=== PATIENT | male | born 1945 | race Caucasian/White ===

== ENCOUNTER 2018-10-27 11:44 | Inpatient (IN) ==
[2018-10-27] MEDS ORDERED: ASPIRIN PO ONE (11:59)
[2018-10-27] MEDS ORDERED: ASPIRIN PR ONE (11:59)
--- NOTE | 2018-10-27 12:16 | EKG Report ---
Test Performed on : 10/27/2018 11:48:01 AM Test Reason : CP Blood Pressure : / mmHG Vent. Rate : 054 BPM Atrial Rate : 054 BPM P-R Int : 156 ms QRS Dur : 096 ms QT Int : 418 ms P-R-T Axes : 042 -23 059 degrees QTc Int : 396 ms Sinus bradycardia. Incomplete right bundle branch block Borderline ECG When compared with ECG of 04-JAN-2017 17:15, Incomplete right bundle branch block is now present Unconfirmed Result
[2018-10-27 12:19] LABS: BASO# 0.01 X1000 (0.0-0.2); BASO% 0.3 % (0.0-0.8); EOS# 0.01 X1000 (0.0-0.7); EOS% 0.3 % (0.0-10.0); HEMATOCRIT 40.5 % (42.0-52.0); HEMOGLOBIN 14.6 g/dL (14.0-18.0); LYMPH# 0.69 X1000 (1.2-3.4); MCH 32.2 PG (27-31); MCV 89.4 FL (81-99); MONO# 0.21 X1000 (0.11-0.59); MONO% 7.3 % (1.7-9.3); NEUT# 1.95 X1000 (1.4-6.5); NEUT% 68.1 % (42.2-75.2); PLT 103 X1000 (130-400); RBC 4.53 XMIL (4.7-6.1); RDW 12.6 % (11.5-14.5); WBC 2.87 X1000 (4.8-10.8)
[2018-10-27] MEDS ORDERED: NITROGLYCERIN TOP ONE (12:21)
--- NOTE | 2018-10-27 12:29 | Diag Imaging Result Doc PS360 ---
CHEST-2 VIEWS - 10/27/2018 INDICATION: CP COMPARISON: 01/04/2017 FINDINGS: The lungs are normally expanded and clear. Heart size and mediastinal contours are normal. No pneumothorax or pleural effusion. IMPRESSION: Negative exam. Electronically signed by Reynold Fritz 10/27/2018 12:26 PM
[2018-10-27 12:30] LABS: INR 0.84; PROTIME 12.2 Seconds (11.0-16.0); PTT 27.7 Seconds (22.3-41.8)
--- NOTE | 2018-10-27 12:32 | PROVIDER DOCUMENTATION ---
HPI-Chest Pain - General Chief Complaint: Chest Pain Stated Complaint: CHEST TIGHTNESS,SOB,NAUSEA Time Seen by Provider: 10/27/18 11:54 Source: patient Allergies/Adverse Reactions: Patient Allergies Allergy/AdvReac Type Severity Reaction Status Date / Time No Known Allergies Allergy Verified 04/30/16 21:50 Home Medications: Home Medication List Medication Instructions Recorded Confirmed Last Taken Type Aspirin 81 mg PO DAILY 01/04/16 04/15/18 04/14/18 21:00 History Calcium Carbonate [Calcium] 600 mg PO DAILY 01/04/16 04/15/18 04/14/18 21:00 History Finasteride 5 mg PO DAILY 01/04/16 04/15/18 04/14/18 21:00 History Gabapentin [Neurontin] 800 mg PO BID 01/04/16 04/15/18 04/14/18 21:00 History Metoprolol [Lopressor] 25 mg PO DAILY 01/04/16 04/15/18 04/14/18 21:00 History Montelukast [Singulair] 10 mg PO DAILY 01/04/16 04/15/18 04/14/18 21:00 History Simvastatin 10 mg PO DAILY 01/04/16 04/15/18 04/14/18 21:00 History Tamsulosin [Flomax] 0.4 mg PO DAILY 01/04/16 04/15/18 04/14/18 21:00 History Carbidopa/Levodopa 1 each PO TID 04/14/18 04/15/18 04/14/18 21:00 History [Carbidopa-Levodopa 25-100 Tab] Cyanocobalamin (Vitamin B-12) 1,000 mcg PO DAILY 04/14/18 04/15/18 04/14/18 21:00 History [Vitamin B-12] Losartan [Cozaar] 25 mg PO DAILY 04/14/18 04/15/18 04/13/18 21:00 History Vit/Fe Fumarate/FA 1 each PO DAILY 04/14/18 04/15/18 04/14/18 21:00 History [ Tablet] Omeprazole [Prilosec] 40 mg PO DAILY #90 capsule. 04/15/18 Unknown Rx - History of Present Illness-CP Nature of Presenting Problem: Patient is a 73 yowm who complains of mid sternal chest pain described as "tightness" that is worse with activity x 3-4 weeks. States was worse yesterday while mowing grass. Pain is associated with SOB and nausea. He denies any other symptoms. Hx of CAD. He is non-toxic in appearance. Review of Systems - Adult - REVIEW OF SYSTEMS - ADULT Constitutional: reports: no symptoms reported Eyes: reports: no symptoms reported Ears, Nose, Mouth & Throat: reports: no symptoms reported Cardiovascular: reports: see HPI, chest pain. denies: edema, heart murmur, irregular heart rate, orthopnea, palpitations, poor circulation, PND, syncope Respiratory: reports: see HPI, shortness of breath Gastrointestinal: reports: see HPI, nausea. denies: abdominal pain, diarrhea, vomiting Genitourinary: reports: no symptoms reported Musculoskeletal: reports: no symptoms reported Integumentary: reports: no symptoms reported Neurological: reports: no symptoms reported Psychiatric: reports: no symptoms reported Endocrine: reports: no symptoms reported Hematologic/Lymphatic: reports: no symptoms reported Allergic/Immunologic: reports: no symptoms reported All Other Systems: Reviewed and Negative Past History - Adult - PAST MEDICAL HISTORY-ADULT Review of Records: reports: Nursing Assessment Review, Medications Reviewed, Social history reviewed & non-contributory. Major Childhood Illnesses: reports: denies history Cardiovascular: reports: CAD, HTN Respiratory: reports: denies history Gastrointestinal: reports: denies history Genitourinary: reports: denies history Musculoskeletal: reports: denies history Neurological: reports: Parkinson's Psychiatric: reports: denies history Endocrine/Immune: reports: denies history, Diabetes Other Conditions: reports: denies history - IMMUNIZATION STATUS Childhood Immunizations: See Nurse Assessment Flu Vaccine: See Nurse Assessment - FAMILY HISTORY Family History: reviewed, not pertinent - SOCIAL HISTORY Smoking: non-smoker Physical Exam-General - PHYSICAL EXAM-ADULT Initial Vital Signs Reviewed: Yes - CONSTITUTIONAL General Appearance: alert, no apparent distress. negative: lethargic, slow to respond - EYES Eyes: PERRL/EOMI, pink conjunctivae - HEAD, EARS, NOSE, MOUTH & THROAT HENMT: normocephalic/atraumatic, moist mucous membranes - NECK Neck: non-tender, full range of motion, supple, normal inspection - RESPIRATORY Respiratory: chest non-tender, lungs clear, normal breath sounds, no pleuratic chest pain, no respiratory distress, no accessory muscle use - CARDIOVASCULAR Cardiovascular: normal peripheral pulses, regular rate, rhythm, no edema, no gallop, no JVD, no murmur - GASTROINTESTINAL (ABDOMEN) Abdominal Exam: normal bowel sounds, non tender, soft, no organomegaly, no pulsatile mass - MUSCULOSKELETAL Back Exam: normal inspection Extremity: normal range of motion, non-tender, normal gait, normal inspection - SKIN Integumentary: normal color, warm/dry. negative: cyanosis, diaphoresis, jaundice, mottled, pallor - NEUROLOGIC Neurologic: grossly normal, no motor/sensory deficits, other (resting tremor- chronic due to Parkinson's disease) - PSYCHIATRIC Psych/Mental Status: normal mood/affect, normal thought content, normal thought process, oriented x 3 - HEART Score HEART Score: History: Highly Suspicious HEART Score: ECG: Normal HEART Score: Age: > or = 65 Years HEART Score: Risk Factors for Atherosclerotic Disease: > or = 3 Risk Factors or History of Atherosclerotic Disease HEART Score: Troponin: < or = Normal Limit Total HEART Score:: 6 Progress - PLAN OF CARE/RESULTS Progress/Plan/Lab Results: Vital Signs - 8 hr 10/27/18 11:50 Temperature 98.2 F Pulse Rate 54 L Respiratory Rate 18 Blood Pressure 178/77 O2 Sat by Pulse Oximetry 99 Laboratory Results - last 24 hr 10/27/18 10/27/18 10/27/18 12:00 12:00 12:00 WBC 2.87 L RBC 4.53 L Hgb 14.6 Hct 40.5 L MCV 89.4 MCH 32.2 H MCHC 36.0 RDW Std Deviation 12.6 Plt Count 103 L MPV 11.0 H Immature Gran % (Auto) 0.0 Neut % (Auto) 68.1 Lymph % (Auto) 24.0 [place] % (Auto) 7.3 Eos % (Auto) 0.3 Baso % (Auto) 0.3 Immature Gran # (Auto) 0.00 Neut # (Auto) 1.95 Lymph # (Auto) 0.69 L [place] # (Auto) 0.21 Eos # (Auto) 0.01 Baso # (Auto) 0.01 PT INR PTT (Actin FS) Sodium 140 Potassium 4.1 Chloride 103 Carbon Dioxide 28 Anion Gap 9 BUN 13 Creatinine 0.9 Estimated GFR/1.73 m2 > 60 BUN/Creatinine Ratio 14 Glucose 98 Calculated Osmolality 279 Calcium 8.4 L Magnesium Total Bilirubin 0.69 AST 20 ALT 8 L Alkaline Phosphatase 72 Creatine Kinase 110 Troponin T Cxq-G-Pepgoqaocyg Pept 139 Total Protein 6.8 Albumin 4.3 Globulin 2.5 Albumin/Globulin Ratio 1.7 10/27/18 10/27/18 10/27/18 12:00 12:00 12:00 WBC RBC Hgb Hct MCV MCH MCHC RDW Std Deviation Plt Count MPV Immature Gran % (Auto) Neut % (Auto) Lymph % (Auto) [place] % (Auto) Eos % (Auto) Baso % (Auto) Immature Gran # (Auto) Neut # (Auto) Lymph # (Auto) [place] # (Auto) Eos # (Auto) Baso # (Auto) PT 12.2 INR 0.84 PTT (Actin FS) 27.7 Sodium Potassium Chloride Carbon Dioxide Anion Gap BUN Creatinine Estimated GFR/1.73 m2 BUN/Creatinine Ratio Glucose Calculated Osmolality Calcium Magnesium 2.1 Total Bilirubin AST ALT Alkaline Phosphatase Creatine Kinase Troponin T < 0.010 Lwd-V-Prmydyjfugk Pept Total Protein Albumin Globulin Albumin/Globulin Ratio Orders Category Date Time Status Cardiac Monitoring DIRECTED Care 10/27/18 11:59 Active Oxygen Therapy- ED Nursing DIRECTED Care 10/27/18 11:59 Active Saline Loc NOW Care 10/27/18 11:59 Active CHEST-2 VIEWS [RAD] Stat Exams 10/27/18 11:59 Completed CBC WITH ELECTRONIC DIFF [HEME] Stat Lab 10/27/18 12:00 Completed CK PROFILE [SP CHEM] Stat Lab 10/27/18 12:00 Completed COMPREHENSIVE METABOLIC PANEL [CHEM] Stat Lab 10/27/18 12:00 Completed MAGNESIUM [CHEM] Stat Lab 10/27/18 12:00 Completed PRO B-NATRIURETIC PEPTIDE Stat Lab 10/27/18 12:00 Completed PROTIME WITH INR [COAG] Stat Lab 10/27/18 12:00 Completed PTT [COAG] Stat Lab 10/27/18 12:00 Completed TROPONIN T Stat Lab 10/27/18 12:00 Completed Aspirin Med 10/27/18 11:59 Discontinued 300 mg HI NOW ONE Aspirin Med 10/27/18 11:59 Discontinued 325 mg PO NOW ONE Nitroglycerin Med 10/27/18 12:21 Discontinued 1 inch TOP NOW ONE CP/SOB/Palp >45 yrs of Age Stat Oth 10/27/18 11:59 Ordered EKG [EKG] Stat Ther 10/27/18 11:59 Draft 1250- Dr. Lopez (patient's pcp) aware of patient's chief complaint, states to admit to [facility]. [facility] paged. Pt in agreement with admission plan. Result Diagrams: 10/27/18 12:00 10/27/18 12:00 - XRAY 1 XRAY Study: Chest (IMPRESSION: Negative exam. Electronically signed by Reynold Fritz 10/27/2018 12:26 PM) - CONSULTS/PCP/HOSPITALIST Notification #1 *Consult/PCP/Hospitalist*: Dr. Coe Time Discussed: 13:03 Reason/Comments: admission-chest pain Consult Disposition: Admit (Dr. Junior is accepting physician) Departure - Departure Date of Disposition Decision: 10/27/18 Time of Disposition Decision: 12:45 DIAGNOSIS: Chest pain Qualifiers: Chest pain type: unspecified Qualified Code(s): R07.9 - Chest pain, unspecified Disposition: ADMITTED INPATIENT 09 Certified Medical Emergency: Emergent Condition: Stable Referrals and Follow-Ups: Raoul Lopez, [Primary Care Provider] - - Critical Care Note This patient required my direct & personal management of CC.: No Attestation - Physician/ NEEL Attestation Patient care was provided by Advanced Practice Provider:: Yes Advanced Practice Provider:: Sonali Ren Advanced Practice Provider documentation review:: The Mid-level provider documentation, treatment plan and medical decision making was reviewed by the physician who agrees with all treatment and medical decision making by the P. The physician spent face to face time with patient:: No Advanced Practice Provider documentation review:: Supervising physician onsite and consulted in the evaluation and care of this patient. The physician did not have a face to face encounter with the patient.
[2018-10-27 12:42] LABS: AGAP 9; ALB/GLOB RATIO 1.7; ALBUMIN 4.3 g/dL (3.5-5.0); ALKALINE PHOSPHATASE 72 U/L (32-122); BUN 13 mg/dL (8-22); CALCIUM 8.4 mg/dL (8.8-10.2); CHLORIDE 103 mmol/L (98-107); CK PROFILE 110 U/L (24-204); COSMO 279; CREATININE 0.9 mg/dL (0.7-1.2); ESTIMATED GFR > 60; GLUCOSE 98 mg/dL (70-104); GOT 20 U/L (10-34); GPT 8 U/L (10-44); POTASSIUM 4.1 mmol/L (3.5-5.1); SODIUM 140 mmol/L (136-145); TCO2 28 mmol/L (25-35); TOTAL BILIRUBIN 0.69 mg/dL (0.20-1.00); TOTAL PROTEIN 6.8 g/dL (6.3-8.3)
--- NOTE | 2018-10-27 14:39 | HISTORY AND PHYSICAL ---
HISTORY OF PRESENT ILLNESS: Mr. Mahoney is a 73-year-old, patient of Dr. rAi Lopez, who was last here with some bloody stool back in 04/2016. This time, for about 2 weeks off and on, he has had chest pain. It is getting a little more intense, and it is usually related to exertion. He has known history of coronary artery disease, and his daughter reports that he has, they think, 3 stents. He has not had any heart injury that they know of and no heart attack, but he has noticed increasing frequency of this chest pain with exertion. Denies fever or chills. No pleuritic pain. No chest trauma. PAST MEDICAL HISTORY: 1. Diabetes mellitus type 2. 2. Hypertension. 3. Hyperlipidemia. 4. Diabetic neuropathy. 5. Coronary artery disease. 6. Pancytopenia and thrombocytopenia, followed by Dr. Walter, not sure whether it is bone marrow dysfunction, such as myelodysplasia. 7. Enlarged prostate, benign prostatic hypertrophy, with lower urinary tract symptoms. 8. Parkinson's disease. PAST SURGICAL HISTORY: 1. Cardiac stents, which they claim has been 3 different times. 2. Colonoscopy. 3. Two previous bone marrow biopsies. SOCIAL HISTORY: The patient denies any past tobacco, alcohol, or illicit drug use. FAMILY HISTORY: Positive for congestive heart failure and heart disease in mother. ALLERGIES: No known drug allergies. CURRENT MEDICATIONS: I believe he is on aspirin 81 mg a day, calcium 600 mg daily, Plavix 75 mg a day, finasteride 5 mg daily, gabapentin 500 mg daily, metformin 500 mg p.o. daily, metoprolol 25 mg a day, Singulair 10 mg a day, multivitamin 1 a day, simvastatin, Flomax 0.4 mg a day. REVIEW OF SYSTEMS: General: His daughter was there, and said he has lost about 7 pounds over the last 3 months. He feels like his appetite is just not as good. No fever, no fever chills. HEENT: No change in visual or hearing acuity. Respiratory: No increased work of breathing or dyspnea. Cardiovascular: The chest pain as described above, which is a pressure-type pain in the midsternum. No radiation to his jaw or neck or arm. No diaphoresis associated. No palpitations. Gastrointestinal/Genitourinary: No complaints about his bowels or urination. He does have some nocturia, but that is not new. Musculoskeletal/Neurologic: He does have diabetic neuropathy. Endocrinologic/Hematologic: History of diabetes. PHYSICAL EXAMINATION: VITAL SIGNS: Temperature 98.2 degrees, pulse 54, respirations 18, blood pressure 178/77. Weight 155 pounds. HEENT: Pupils are equal and round. LUNGS: Clear in all lung barriga. CARDIOVASCULAR: Regular rhythm and rate without murmur or S3. ABDOMEN: Soft. SKIN: Warm and dry. IMAGING AND LABORATORY DATA: White count 2870, hematocrit is 40, platelet count is 103,000. Sodium 140, potassium 4.1, chloride 103, bicarb 28, BUN 13, creatinine 0.9. Magnesium 2.1. AST 20, ALT was 8, albumin is 4.3. ProTime 12.2, INR 0.84, PTT is 27. Chest x-ray: Negative exam. No infiltrates. ASSESSMENT AND PLAN: 1. Chest pain with known coronary artery disease. I think we are obligated to make sure he does not have unstable angina. Will ask Cardiology to see. They report that he has had at least two, but they think three stents placed in the past. 2. Diabetes mellitus type 2. Will follow pattern sugars. Check hemoglobin A1c. Will check his lipid profile as well. 3. History of Parkinson's. 4. Hypertension. 5. Apparently, he has had pancytopenia, in particular thrombocytopenia, and Dr. Walter has been following him. His blood counts look pretty good, except platelets were a little low at 103,000. cc: Juan David Junior MD
[2018-10-27] MEDS ORDERED: TYLENOL PO PRN (15:30)
[2018-10-27] MEDS ORDERED: ASPIRIN PO SCH (15:30)
[2018-10-27] MEDS ORDERED: ZOFRAN IV PRN (15:30)
[2018-10-27] MEDS: SINEMET 25/100 PO SCH (18:27)
[2018-10-27] MEDS ORDERED: PNEUMOVAX 23 IM ONE (19:00)
[2018-10-27] MEDS: NEURONTIN PO SCH (22:18)
--- NOTE | 2018-10-27 23:20 | CARDIOLOGY CONSULTATION ---
DATE: 10/27/2018 REQUESTING PHYSICIAN: Hospitalist service. REASON FOR CONSULTATION: Chest pain. PRIMARY CARE PHYSICIAN: Raoul Lopez DO PRIMARY TREE DOCTOR: Jeremy Downey MD, from the [facility] in [place]. HISTORY OF PRESENT ILLNESS: Mr. Mahoney is a 73-year-old male who presented to the ER for evaluation because he noted chest pressure, tightness and burning when performing his regular exercises prescribed for management of Parkinson disease. That happened twice a couple of days ago. Yesterday he went to mow his grass and he developed chest heaviness and discomfort. It radiated to the left arm when pushing the lawnmower, and he decided to seek evaluation. The discomfort subsided with rest rather quickly. PAST MEDICAL HISTORY: Positive for severe coronary heart disease. Back in 2005 they found severe coronary heart disease and he underwent percutaneous intervention. Since then, he has been clinically stable. He has hypertension. He has been treated for acid reflux. Dr. Kimble performed upper endoscopy in 2018 because of dysphagia and performed esophageal stretching. He is feeling better in that regard. He has hyperlipidemia and gout. No recent flare-ups. PAST SURGICAL HISTORY: Not significant. He has been diagnosed with Parkinson disease by Dr. Tobin about 2 years ago and has been taking medication under his care. The patient suffered polio as a child and he has a deformity on the left hand as a result of that. SOCIAL HISTORY: The patient is a . a couple of years ago. He is living by himself. He has 3 children. Daughter is at the bedside and she is the one who looks after him. FAMILY HISTORY: Noncontributory for heart disease. The patient retired from [employer]. He retired in 2005. Of note, the patient's of ALS. REVIEW OF SYSTEMS: The patient has been diagnosed with thrombocytopenia and leukopenia, and is being followed by Dr. Walter from the [facility]. No other positives in the review of systems. The patient says that he is attending boxing classes regularly 3 times a week to overcome the limitations created by Parkinson, especially on his balance, and he feels like it has helped. He also feels like he has lost about 10 pounds over the course of the past several months. His body mass index is 23.6. His appetite is relatively good; however, his eating habits are erratic. MEDICATIONS: His home medications listed at the time of this admission include aspirin 81 mg daily, calcium carbonate 600 daily, carbidopa/levodopa 25/100 mg he takes 3 times a day, finasteride 5 mg daily, Neurontin 800 mg 3 times a day, losartan 25 daily, metoprolol 25 daily, montelukast 10 mg daily, omeprazole 40 mg daily, simvastatin 10 mg daily, tamsulosin 0.4 mg daily. ALLERGIES: Negative. PHYSICAL EXAMINATION: Blood pressure is 168/72, pulse is 55, respirations 18, temperature 98.3 degrees. He is awake, alert and oriented, in no distress. HEENT: Unremarkable. Chest clear to auscultation and percussion. Heart sounds regular and rhythmic. No gallop or murmur. Abdomen is soft, nontender. Extremities show good pulses. No peripheral edema. Neurological exam: He has tremor in both hands, more so on the left side where there is atrophy of the muscles of the left hand. He is alert and oriented x3. Follows commands. Speech is clear. LABORATORY DATA: Blood work thus far: White cell count 2870, hemoglobin is 14.6, hematocrit 40.5, platelet count 103,000. Sodium 140, potassium 4.1, BUN 13, creatinine 0.9. Troponin levels have been checked 3 times already. They are negative. ProBNP is normal at 139 pg/mL. DIAGNOSTIC DATA: A chest x-ray done in the ER has been reported as showing "negative exam." A 12-lead EKG that was done at 11:48 a.m. today shows sinus bradycardia, leftward axis, incomplete right bundle branch block, question of early transition. IMPRESSION: 1. Patient who presents with exertional chest pain at a relatively low workload, reminiscent of angina pectoris, functional class 3. 2. Severe coronary heart disease, previous stents, supposedly to the left circumflex. 3. History of hypertension. 4. History of Parkinson disease. 5. Remote history of polio as a child. 6. History of hyperlipidemia. RECOMMENDATIONS: We will arrange for a myocardial perfusion stress test using Lexiscan protocol. We will obtain an echocardiogram in the morning. Further advice will be forthcoming. If significant abnormalities noted on the nuclear stress test are identified, the patient will be referred to his primary scan coordinator who is Dr. Downey, for further management that may require a transfer to [facility]. Thank you for asking us to participate in his evaluation. cc: MD Juan David Tang MD
--- NOTE | 2018-10-28 06:36 | EKG Report ---
Test Performed on : 10/28/2018 06:13:06 AM Test Reason : chest pain Blood Pressure : / mmHG Vent. Rate : 049 BPM Atrial Rate : 049 BPM P-R Int : 178 ms QRS Dur : 096 ms QT Int : 456 ms P-R-T Axes : 072 -18 054 degrees QTc Int : 411 ms Sinus bradycardia. Incomplete right bundle branch block Borderline ECG When compared with ECG of 27-OCT-2018 11:48, (Unconfirmed) No significant change was found Confirmed by Jean Marie MURILLO, Daniele Garcia ([id number]) on 10/29/2018 11:37:50 AM
[2018-10-28] MEDS ORDERED: PRILOSEC PO SCH ×2 (07:00)
[2018-10-28] MEDS ORDERED: LEXISCAN ONE (08:33)
[2018-10-28] MEDS ORDERED: AMINOPHYLLINE ONE (08:54)
[2018-10-28] MEDS ORDERED: LOPRESSOR PO SCH (09:00)
[2018-10-28] MEDS ORDERED: PROSCAR PO SCH (09:00)
[2018-10-28] MEDS ORDERED: VITAMIN B-12 PO SCH (09:00)
[2018-10-28] MEDS ORDERED: ZOCOR PO SCH (09:00)
[2018-10-28] MEDS ORDERED: SINGULAIR PO SCH (09:00)
[2018-10-28] MEDS: NEURONTIN PO SCH (09:00)
[2018-10-28] MEDS ORDERED: PRECARE PO SCH (09:00)
[2018-10-28] MEDS ORDERED: FLOMAX PO SCH (09:00)
[2018-10-28] MEDS ORDERED: ASPIRIN PO SCH (09:00)
[2018-10-28] MEDS ORDERED: COZAAR PO SCH (09:00)
[2018-10-28] MEDS ORDERED: CALTRATE 600 PO SCH (09:00)
[2018-10-28] MEDS: SINEMET 25/100 PO SCH ×3 (09:40→18:06)
--- NOTE | 2018-10-28 10:18 | PROGRESS NOTE ---
DATE: 10/28/2018 SUBJECTIVE: Mr. Mahoney had a good night, no complaints of palpitations. He remains afebrile. OBJECTIVE: Vital Signs: Temperature 97.7 degrees, pulse 45, respirations 16, blood pressure 142/69. Eyes: Pupils are equal and round. Lungs: Clear in all lung barriga. Cardiovascular exam: Regular rhythm and rate without murmur or S3. Abdomen: Soft. Skin: Warm and dry. LAB: CK and troponin unremarkable. ASSESSMENT AND PLAN: 1. The patient presented with exertional chest pain, relatively low workload, reminiscent of angina pectoris functional class 3. Has a history of severe coronary artery disease, previous stent supposedly to left circumflex. Plan is for stress test Myoview GXT today. 2. Patient has a history of hypertension. 3. History of Parkinson disease. 4. Remote history of polio as a child. 5. Hyperlipidemia. So, plan is a Lexiscan protocol myocardial perfusion stress test, and obtain an echocardiogram as well. Cardiology following this. cc: Juan David Junior MD
[2018-10-28 12:25] LABS: BASO# 0.01 X1000 (0.0-0.2); BASO% 0.2 % (0.0-0.8); EOS# 0.02 X1000 (0.0-0.7); EOS% 0.5 % (0.0-10.0); HEMATOCRIT 39.3 % (42.0-52.0); HEMOGLOBIN 14.2 g/dL (14.0-18.0); LYMPH# 0.68 X1000 (1.2-3.4); LYMPH% 15.8 % (20.5-51.1); MCH 32.8 PG (27-31); MCHC 36.1 g/dL (33-37); MCV 90.8 FL (81-99); MONO# 0.32 X1000 (0.11-0.59); MONO% 7.4 % (1.7-9.3); MPV 11.2 FL (7.4-10.4); NEUT# 3.27 X1000 (1.4-6.5); NEUT% 76.1 % (42.2-75.2); PLT 96 X1000 (130-400); RBC 4.33 XMIL (4.7-6.1); RDW 12.8 % (11.5-14.5)
[2018-10-28 12:43] LABS: AGAP 8; ALB/GLOB RATIO 1.5; ALBUMIN 3.8 g/dL (3.5-5.0); ALKALINE PHOSPHATASE 68 U/L (32-122); BUN 16 mg/dL (8-22); CALCIUM 8.4 mg/dL (8.8-10.2); CHLORIDE 108 mmol/L (98-107); CHOLESTEROL 111 mg/dL (0-200); COSMO 288; CREATININE 0.9 mg/dL (0.7-1.2); ESTIMATED GFR > 60; GLUCOSE 91 mg/dL (70-104); GOT 17 U/L (10-34); GPT < 5 U/L (10-44); HDL 43 mg/dL (35-55); LDL 37 mg/dL; MAGNESIUM 2.3 mg/dL (1.5-2.7); POTASSIUM 3.9 mmol/L (3.5-5.1); SODIUM 144 mmol/L (136-145); TCO2 28 mmol/L (25-35); TOTAL BILIRUBIN 0.61 mg/dL (0.20-1.00); TOTAL PROTEIN 6.4 g/dL (6.3-8.3); TRIGLYCERIDES 154 mg/dL (39-160); VLDL 31 mg/dL
--- NOTE | 2018-10-28 14:59 | Diag Imaging Result Document ---
PROCEDURE NAME: MYOCARDIAL PERF SCAN, STR/REST - 10/28/2018 STUDY: Rest/stress Lexiscan myocardial perfusion study. INDICATION: Patient with chest pain, angina pectoris, previous stent, Parkinson's disease. DESCRIPTION: The patient came into the nuclear laboratory, received resting injection of technetium 99 sestamibi 10.5 mCi. Multiple tomographic views of the cardiac structure were obtained at rest. Subsequently, the patient underwent infusion of Lexiscan 0.4 mg. At peak infusion, he was injected with technetium 99 sestamibi 31.6 mCi. Multiple tomographic views of the cardiac structure were obtained following the completion of the protocol. SUMMARY OF THE ELECTROCARDIOGRAPHIC PORTION OF THE STUDY: Resting ECG shows sinus rhythm, rate 50 beats per minute. Resting blood pressure 126/71. Resting ECG shows early transition and complete right bundle branch block. During the protocol, the heart rate increased to a maximum of 81 beats per minute. Blood pressure went up to 134/75. The patient reported midsternal chest tightness of mild severity. There was no dyspnea or palpitations. The chest tightness increased to 6/10 in intensity at the end of the procedure and then aminophylline had to be given to counteract the effects of Lexiscan. Aminophylline 125 mg was given. No ischemic changes were identified on the ECG and during the recorded phase the heart and blood pressure returned back to baseline. In summary, electrocardiographic response to infusion of Lexiscan is negative for ischemia, however, the clinical response is suspicious. SUMMARY OF THE MYOCARDIAL PERFUSION PORTION OF THE STUDY: Poststress tomographic views of the left ventricle showed a moderate in severity relatively extensive in extent inferior wall defect. This basically spans the entire inferior wall from the base to the apex. The rest images suggest a mild degree of reversibility in the mid section of the defect. The polar plots revealed the same. There is a suggestion of a moderate severity extensive inferior wall scar with mild degree of inducible ischemia on top of it. The gated SPECT shows normal left ventricular systolic function, ejection fraction on the rest images is 75%, poststress images is 74%. Using the Myometrix protocol, the resting ejection fraction is 71%, poststress is 73%. There is no definite indication of wall motion abnormality. That would suggest that the fixed component of the defect is predominantly subendocardiac. The lung/heart ratio is normal at 0.27 on the poststress images, 0.31 on the rest images. TID is normal at 1.0. SUMMARY: This study shows: 1. Negative ECG response to infusion of Lexiscan with a suspicious clinical response for possible ischemia. 2. Abnormal poststress myocardial perfusion scan. There is a scintigraphic suggestion of a extensive [id number] in severity inferior wall scar with inducible ischemia in the midsection of the scar. This is very subtle. 3. Well-preserved left ventricular systolic function, ejection fraction is 74% on the poststress images. Clinical correlation is strongly recommended. cc: Cortez Friedman MD
[2018-10-28 16:03] VITALS: BP 162/77
--- NOTE | 2018-10-28 16:59 | DISCHARGE SUMMARY ---
ADMISSION DATE: 10/27/2018 DISCHARGE DATE: 10/28/2018 PRIMARY CARE PHYSICIAN: Dr. Herbert Lopez. HISTORY: This is a 73-year-old who was last here, admitted on 04/28/2016. At that time he had some bloody stool. This time he came in with 2 weeks of intermittent chest pain, but seems to be more intense and it is related to exertion. He has no radiation into his neck or into his arm. No diaphoresis. No palpitation. He has known coronary artery disease and he thinks he had a couple of stents placed and best I can tell I think it was in the circumflex artery, but I do not have those records. PAST MEDICAL HISTORY: 1. Diabetes mellitus type 2. 2. Hypertension. 3. Hyperlipidemia. 4. Diabetic neuropathy. 5. Coronary artery disease. 6. Pancytopenia and thrombocytopenia, followed by Dr. Walter. He has had a couple bone marrow biopsies. 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 7. Enlarged prostate, benign prostatic hypertrophy, lower urinary tract infections. 8. Parkinson disease. PAST SURGICAL HISTORY: 1. Cardiac stents, they claim 3 different times; they believe he has 3 different stents. 2. Colonoscopy. 3. Two previous bone marrow biopsies. HOSPITAL COURSE: His cardiac enzymes were negative. EKG unremarkable as well. Cardiology was asked to see and decided to do a Myoview GXT. He does have exertional type chest pain, relatively low workload reminiscent of his angina pectoralis functional class 3, severe coronary artery disease, and previous stents. Myocardial perfusion scan electrically looked good. Abnormal post stress myocardial perfusion scan. There was suggestion of extensive mild to moderate in severity inferior wall scar with inducible ischemia in the mid section of the scar, this is very subtle. Well preserved left ventricular function. Ejection fraction was 74%. CURRENT MEDICATIONS: He is on aspirin 81 mg a day, calcium 600 mg a day. He takes carbidopa levodopa 25/100 one t.i.d., B12 1000 mcg daily, finasteride 5 mg a day, Neurontin 800 mg b.i.d., Cozaar 25 mg a day, metoprolol 25 mg a day, Singulair 10 mg daily, Prilosec 40 mg daily, 1 a day, simvastatin 10 mg a day, Flomax 0.4 mg a day. We will start him on Ranexa 500 mg twice a day. FOLLOW UP: We will have him follow up with Dr. Downey and he will be discharged today. cc: Juan David Junior MD MTDD
[2018-10-29] MEDS ORDERED: CENTRUM SILVER PO SCH (09:00)
--- NOTE | 2018-10-29 09:53 | ECHO REPORT ---
ORDER DATE: 10/28/2018 INTERPRETING PHYSICIAN: Dr. Friedman CLINICAL INDICATIONS: 73-year-old male with chest pain, previous stent, coronary heart disease. M-MODE MEASUREMENTS: Left ventricle end diastole: 4.6 cm. Left ventricle end systole: 3.2 cm. Posterior wall: 1.3 cm. Interventricular septum: 1.4 cm. Left atrium: 3.3 cm. Aortic diameter: 3.9 cm. SUMMARY OF 2-DIMENSIONAL IMAGING: The left ventricular function is normal. Ejection fraction estimated at 60%. No wall motion abnormality is noted. Mild degree of concentric LVH is noted. The right sided chambers appear to be slightly prominent. Tricuspid valve is normal with mild degree of regurgitation. The inferior vena cava is not dilated. Pulmonary pressure estimated at 33 mmHg. Pulmonic valve looks grossly normal. Aortic valve has 3 cusps. They open normally. Color flow mapping unremarkable. Mitral valve shows mild degree of regurgitation. Pulse wave Doppler of mitral inflow shows very mild reversal of the E/A ratio. Ratio is 0.8. Tissue Doppler of septal and lateral mitral annulus averages 8 cm per second. There is no diastolic dysfunction. There is no pericardial effusion, mass and no thrombus. Clinical correction recommended. cc: Cortez Friedman MD MTD
== END 2018-10-28 18:14 | disposition home or self-care (01) | DRG 303 ==
LOC: ED 11:44 → 4N 11:45
PROVIDERS: ATTEND Emergency Medicine
CPT/HCPCS: 71020; 71046; 78452; 80053; 80061; 82550; 82948; 83735; 83880; 84484; 85025; 85610; 85730; 93005; 93010; 93017; 93306; 94761; 99285; A9270; A9500; J0280; J0820; J2785; S0138; XXXXX